=== PATIENT | male | born 1985 | race African-American/Black ===

== ENCOUNTER 2017-06-30 18:44 | Emergency (ER) | payer SELFPAY | END 2017-06-30 20:46 | disposition home or self-care (01) | LOC: ERS 18:44 | DX: J06.9 Acute upper respiratory infection, unspecified (principal) | CPT/HCPCS: 87804; 99283 ==

== ENCOUNTER 2019-04-30 10:37 | Emergency (ER) | payer SELFPAY ==
[2019-04-30] MEDS ORDERED: Dexamethasone 4 mg/ml Vial ONE (12:41)
== END 2019-04-30 13:13 | disposition home or self-care (01) ==
LOC: ERS 10:37
DX: J06.9 Acute upper respiratory infection, unspecified (principal)
CPT/HCPCS: 87804; 96372; 99283; J1100